=== PATIENT | male | born 1980 | race Two or more races ===

== ENCOUNTER 2024-05-06 15:58 | Emergency (ER) | payer MEDICAID, OTHER ==
[~2024-05-06] VITALS: Ht 172.7 cm; Wt 102.7 kg
[2024-05-06] MEDS ORDERED: AMOX875T4 PO (17:17)
[2024-05-06 17:19] VITALS: BP 148/80; PULSE 100; RESP 12; TEMP 97.7; O2SAT 95
== END 2024-05-06 17:18 | disposition home or self-care (01) ==
LOC: ER 16:03
DX: A49.01 Methicillin susceptible Staphylococcus aureus infection, unspecified site (principal)

== ENCOUNTER 2024-08-22 15:24 | Emergency (ER) | payer MEDICAID ==
[~2024-08-22] VITALS: Ht 185.4 cm; Wt 148.0 kg
[~2024-08-22 15:24] MED LIST: AMOX875T4 PO
[2024-08-22] MEDS: NALOXONE HCL 1MG/ML 2ML SYRINGE IV ONE (15:45)
--- NOTE | 2024-08-22 15:47 | ED.PDOC ---
Altered Mental Status HPI Comments HPI: Poor Historian. History obtained from EMS only. 43-year-old male brought in by EMS where he was found by bystanders behind a building. Patient was brought in for ALOC s/p ETOH use. Per EMS, bystanders at a local business called 911 due to seeing patient altered behind a movie theater and lying down on the ground. Patient has slurred speech, is A/O to self only, and briefly responds to verbal stimuli. Per EMS, there was no trauma or fall as bystanders saw patient gently lie down on the ground. Blood sugar was 190. Patient has strong scent of alcohol. PMHx: Unable to obtain due to ALOC PSHx: Unable to obtain due to ALOC Allergies: Unknown Initial EMS Vital Signs BP: 128/70 HR: 104 SpO2: 97% RR: 19 REVIEW OF SYSTEMS: Limited given the patient's ALOC CONSTITUTIONAL: Denies acute: fever, diaphoresis, chills, generalized weakness. HEAD: Denies acute: headache, photophobia Eyes: Denies acute: Double vision, vision loss, eye pain, eye discharge. EARS: Denies acute: tinnitus, hearing loss, ear discharge, ear pain, THROAT: Denies acute: sore throat, swelling, difficulty swallowing , pain with swallowing, change in voice. NECK: Denies acute: neck pain, neck swelling, stiff neck. HEART: Denies acute : chest pain, palpitations, LUNGS: Denies acute: SOB, wheezing, cough, hemoptysis ABDOMEN: Denies acute: abdominal pain, Nausea, Vomiting, diarrhea, melena , hematemesis, hematochezia SKIN: Denies acute: rash, redness, lesions, itchiness. EXTREMITIES: Denies acute: calf pain, numbness, tingling, weakness, denies pain in extremity. Denies acute: Low back pain. Neuro: Denies acute: focal neurological deficit, motor or sensory focal neurological deficit, tremors, seizure like activity, loss of bowel or bladder function, cauda equina like symptoms. : Denies acute: dysuria, hematuria, flank pain, increase in urinary frequency. PSYCH: Denies acute: hallucination, suicidal ideation, homicidal ideation. PHYSICAL EXAM: General: no acute distress, arousable to verbal stimuli. Makes eye contact. Head: normocephalic, atraumatic. Neck: supple, trachea is midline, no swelling. Throat: Normal phonation. Eyes:, no erythema, no purulent discharge, no proptosis, no icterus. Heart: regular rate, regular rhythm, no significant murmur appreciated. Lungs: no apparent respiratory distress, No wheezing, no rhonchi, no crackles. No stridors Clear to auscultation bilaterally. Abdomen: non tender to palpation, non distended, soft, no guarding, no rebound, + bowel sounds. Neuro: Awake, Alert, oriented to name, self, situation, follows commands GCS=15. Speech is normal. Skin: no petechia, no purpura, no cyanosis, non-pale, not jaundice. Lower extremities: --no - Pitting edema no deformity, no focal swelling, no calf TTP. Patient has a right ankle monitor. Makes eye contact. moves all four extremities. Face: no apparent facial droop. No nuchal rigidity, Kernig's sign, Brudzinski's sign, no meningeal signs. Chief Complaint: ETOH Time Seen by MD: 15:37 Primary Care Provider: unknown Reviewed Notes: Medications, Allergies Allergies: Coded Allergies: NO KNOWN ALLERGIES (Unverified , 05/06/24) Home Meds Active Scripts Amoxicillin & Pot Clavulanate (Amoxicillin/Potassium Cla) 875 Mg Tab, 1 TAB PO BID for 7 Days, #14 TAB Prov:VAMSI DAILY 05/06/24 Information Source: Emergency Med Personnel Mode of Arrival: EMS Past Medical History PAST MEDICAL HISTORY: Denies Surgical History: Denies all surgeries Social History Smoker: Non-Smoker Alcohol: Denies ETOH Use Drugs: Denies Drug Use Lives In: Home Was a procedure done? Was a procedure done?: No Differential Diagnosis (ALOC) Differential Diagnosis: Dehydration, DKA, Encephalopathy, Sepsis, Hypoxemia, Seizure, Closed Head Injury, CVA, Mass Lesion, SAH, Drug Overdose, ETOH Intoxication, Heart Failure, Renal Failure, Other (DDX include CVA, TGA, cerebellar ischemia/infarct, carotid stenosis, Intracranial mass/infection/bleed, encephalopathy, electrolyte abnormality, thyroid disease, hydrocephalus, hypoglycemia, drug toxicity, cardiac arrhythmia, seizure, infection in the elderly, Hyperammonemia., kidney failure., sepsis.) X-Ray, Labs, Meds, VS Vital Signs Date Time Temp Pulse Resp B/P (MAP) Pulse Ox O2 Delivery O2 Flow Rate FiO2 08/22/24 19:39 99.0 85 21 126/86 (99) 93 99.0 08/22/24 19:39 85 21 94 Room Air* 0 21 08/22/24 18:13 96 14 89 Room Air* 0 08/22/24 16:43 97 18 110/66 (81) 97 08/22/24 16:00 112 08/22/24 15:30 98.4 104 18 128/78 (95) 97 98.4 08/22/24 15:30 98.4 104 18 128/78 (95) 97 Lab Test 08/22/24 21:15 08/22/24 20:48 08/22/24 19:46 08/22/24 18:29 Range/Units Troponin I High Sensitivity < 3 L < 3 L < 3 L </=54 ng/L Plasma/Serum Blood Alcohol 284.1 H 363.2 H <10 mg/dL Lactic Acid Level 2.4 *H 2.7 *H 0.4-2.0 mmol/L White Blood Count 6.8 4.4-10.8 10^3/uL Red Blood Count 5.76 4.5-5.90 10^6/uL Hemoglobin 17.3 13.5-17.5 g/dL Hematocrit 50.5 41.0-53.0 % Mean Corpuscular Volume 87.7 80.0-100.0 fL Mean Corpuscular Hemoglobin 30.0 28.0-32.0 pg Mean Corpuscular Hemoglobin Concent 34.2 32.0-36.0 g/dL Red Cell Distribution Width 13.8 11.8-14.3 % Platelet Count 228 140-450 10^3/uL Mean Platelet Volume 8.7 6.9-10.8 fL Neutrophils (%) (Auto) 61.4 37.0-80.0 % Lymphocytes (%) (Auto) 31.1 10.0-50.0 % Monocytes (%) (Auto) 6.9 0.0-12.0 % Eosinophils (%) (Auto) 0.4 0.0-7.0 % Basophils (%) (Auto) 0.2 0.0-2.0 % Neutrophils # (Auto) 4.2 1.6-8.6 10 ^3/uL Lymphocytes # (Auto) 2.1 0.4-5.4 10 ^3/uL Monocytes # (Auto) 0.5 0-1.3 10 ^3/uL Eosinophils # (Auto) 0 0-0.8 10 ^3/uL Basophils # (Auto) 0 0-0.2 10 ^3/uL Nucleated Red Blood Cells 0.1 % Sodium Level 140 136-145 mmol/L Potassium Level 3.8 3.5-5.1 mmol/L Chloride Level 106 98-107 mmol/L Carbon Dioxide Level 25 20-31 mmol/L Anion Gap 9 5-15 Blood Urea Nitrogen 11 9-23 mg/dL Creatinine 0.83 0.700-1.30 mg/dL Glomerular Filtration Rate Calc 110 >90 mL/min BUN/Creatinine Ratio 13.3 10.0-20.0 Serum Glucose 95 74-106 mg/dL Calcium Level 9.6 8.7-10.4 mg/dL Magnesium Level 2.4 1.6-2.6 mg/dL Total Bilirubin 0.5 0.2-1.0 mg/dL Aspartate Amino Transferase (AST) 34 13-40 U/L Alanine Aminotransferase (ALT) 80 H 7-40 U/L Alkaline Phosphatase 79 46-116 U/L Total Protein 7.2 5.7-8.2 g/dL Albumin 4.4 3.2-4.8 g/dL Test 08/22/24 18:07 Range/Units Urine Color Colorless Yellow Urine Clarity Clear Clear Urine pH 6.0 5.0-9.0 Urine Specific [place] 1.006 1.001-1.035 Urine Protein 1+ H Negative Urine Ketones Negative Negative Urine Blood 1+ H Negative /uL Urine Nitrite Negative Negative Urine Bilirubin Negative Negative Urine Urobilinogen Normal Negative mg/dL Urine Leukocyte Esterase Negative Negative /uL Urine RBC <1 0 - 3 /hpf Urine WBC 1 0 - 3 /hpf Urine Squamous Epithelial Cells Few <5 /hpf Urine Bacteria None seen None Seen /hpf Urine Glucose Normal Normal mg/dL Urine Opiates Screen Neg NEGATIVE Urine Fentanyl Screen Neg NEGATIVE Urine Barbiturates Screen Neg NEGATIVE Urine Phencyclidine Screen Neg NEGATIVE Urine Amphetamines Screen Neg NEGATIVE Urine Benzodiazepines Screen Neg NEGATIVE Urine Cocaine Screen Neg NEGATIVE Urine Cannabinoids Screen Neg NEGATIVE Current Medications Medications (Trade) Dose Ordered Sig/Ally Route Start Time Stop Time Status Last Admin Sodium Chloride 1,000 ml @ 1,000 mls/hr Q1H ONCE IV 08/22/24 15:45 08/22/24 16:44 DC 08/22/24 19:10 Naloxone HCl (Narcan) 2 mg ONCE ONCE IM 08/22/24 16:15 08/22/24 16:35 DC 08/22/24 16:15 Sodium Chloride 1,000 ml @ 1,000 mls/hr Q1H ONCE IV 08/22/24 19:30 08/22/24 20:29 DC 08/22/24 20:00 Sodium Chloride 1,000 ml @ 1,000 mls/hr Q1H ONCE IV 08/22/24 21:30 08/22/24 22:29 DC 08/22/24 21:44 [place] [id number] Ph: [phone] DIAGNOSTIC IMAGING Diagnostic Imaging Report : [id number] Signed PATIENT: JAZMINE GOMEZ ACCT: [id number] UNIT: [id number] : 1980 LOC: ER ROOM / BED: / AGE / SEX: 43 / M ADM STATUS: REG ER SERVICE [id number] ORDERING PHYSICIAN: JEFERSON SCHROEDER DO PROCEDURE(s): CXRP - CHEST PORTABLE REASON: aloc ORDER NUMBER(s): [id number], ACCESSION NUMBER(s): [id number] CHEST RADIOGRAPH Indication:aloc Technique: Single frontal view of the chest was obtained Comparison: None FINDINGS: Lines and Tubes: None Lungs: No focal consolidation. Pleura: No effusion. No pneumothorax. Cardiomediastinal contours: Unremarkable Bones: No acute osseous abnormality. IMPRESSION: No acute cardiopulmonary disease. ATED BY: ELISABETH SHERMAN DO DICTATED DATE/TIME: 08/22/241713 SIGNED BY: ELISABETH SHERMAN DO SIGNED DATE/TIME: 08/22/241713 Time of 1ST Reevaluation: 16:07 Reevaluation 1ST: Unchanged Time of 2ND Reevaluation: 22:32 Reevaluation 2ND: Improved Patient Education/Counseling: Diagnosis, Treatment Family Education/Counseling: No Family Present Comments Patient presented with the above HPI.--altered level of consciousness----workup was initiated. patient was found with the above mentioned diagnosis. Patient was given: Multiple fluid boluses, Patient ED course and VS have been stabilized. Patient has been reassessed in the ED and remained in a stable condition. All the reports of any imaging studies that were ordered by myself were reviewed by myself. Patient level of consciousness is improving as his alcohol level is decreasing. Patient is moving all four extremities. Patient is conversational at this time. Patient was given food to eat which she tolerated well. Patient was unable to hold still earlier for a CT scan imaging. We will attempt again. The care of this patient was signed out to my colleague Dr. Fraire. Patient is awaiting CT scan head and cervical and abdomen and pelvis and reassessment and final disposition. Departure 1 Departure Time of Disposition: 22:20 Impression: Primary Impression: Alcohol abuse Additional Impression: Intoxication Disposition: 30 STILL A PATIENT Condition: Stable Discharged With: Self Critical Care Note Critical Care Time?: No I personally scribed for JEFERSON SCHROEDER DO ([email or web address]) on 08/22/24 at 15:47. Electronically submitted by Raymond Guzman ([email or web address]). I personally scribed for JEFERSON SCHROEDER DO ([email or web address]) on 08/22/24 at 20:29. Electronically submitted by Raymond Guzman ([email or web address]). JEFERSON SCHROEDER DO Aug 22, 2024 15:47
[2024-08-22] MEDS: NALOXONE HCL 0.4 MG/ML VIAL IM ONE (16:15)
--- NOTE | 2024-08-22 17:16 | DVH ---
CHEST RADIOGRAPH Indication:aloc Technique: Single frontal view of the chest was obtained Comparison: None FINDINGS: Lines and Tubes: None Lungs: No focal consolidation. Pleura: No effusion. No pneumothorax. Cardiomediastinal contours: Unremarkable Bones: No acute osseous abnormality. IMPRESSION: No acute cardiopulmonary disease.
[2024-08-22 18:09] LABS: Urine Bacteria None Seen /hpf (None Seen)
[2024-08-22 18:13] VITALS: PULSE 96; RESP 14; O2SAT 89
[2024-08-22 18:23] LABS: Urine Blood 1+ /uL (Negative); Urine Clarity Clear (Clear); Urine Color Colorless (Yellow); Urine Protein, UAD 1+ (Negative); Urine Specific Gravity 1.006 (1.001-1.035); Urine Urobilinogen Normal (Negative); Urine WBC 1 /hpf (0 - 3)
[2024-08-22 18:37] LABS: Amphetamine Screen, Urine Neg (NEGATIVE); Barbiturate Scree,Urine Neg (NEGATIVE); Benzodiazephine Screen, Urine Neg (NEGATIVE)
[2024-08-22 18:38] LABS: Cannabinoid Screen, Urine Neg (NEGATIVE); Cocaine Screen, Urine Neg (NEGATIVE); Opiate Scree,Urine Neg (NEGATIVE); Phencyclidine Screen, Urine Neg (NEGATIVE)
[2024-08-22 18:55] LABS: Basophils # (auto) 0 10 ^3/uL (0-0.2); Basophils % (auto) 0.2 % (0.0-2.0); Eosinophils # (auto) 0 10 ^3/uL (0-0.8); Eosinophils % (auto) 0.4 % (0.0-7.0); Hematocrit 50.5 % (41.0-53.0); Hemoglobin 17.3 g/dL (13.5-17.5); Lymphocytes # (auto) 2.1 10 ^3/uL (0.4-5.4); Lymphocytes % (auto) 31.1 % (10.0-50.0); Mean Corpuscular Hgb Conc. 34.2 g/dL (32.0-36.0); Mean Corpuscular Volume 87.7 fL (80.0-100.0); Monocytes # (auto) 0.5 10 ^3/uL (0-1.3); Monocytes % (auto) 6.9 % (0.0-12.0); Neutrophils # (auto) 4.2 10 ^3/uL (1.6-8.6); Neutrophils % (auto) 61.4 % (37.0-80.0); Nucleated Red Blood Cells % 0.1 %; Platelet Count (auto) 228 10^3/uL (140-450); Red Blood Cells 5.76 10^6/uL (4.5-5.90); Red Cell Distribution Width 13.8 % (11.8-14.3); White Blood Cell 6.8 10^3/uL (4.4-10.8)
[2024-08-22] MEDS: SODIUM CHLORIDE 0.9% 1,000 ML IV ONE ×3 (19:10→21:44)
[2024-08-22 19:18] LABS: Alanine Aminotransferase 80 U/L (7-40); Albumin 4.4 g/dL (3.2-4.8); Alkaline Phosphatase 79 U/L (46-116); Anion Gap 9 (5-15); Aspartate Aminotransferase 34 U/L (13-40); BUN/Creatinine Ratio 13.3 (10.0-20.0); Blood Urea Nitrogen 11 mg/dL (9-23); Calcium 9.6 mg/dL (8.7-10.4); Carbon Dioxide 25 mmol/L (20-31); Chloride 106 mmol/L (98-107); Glucose 95 mg/dL (74-106); Magnesium 2.4 mg/dL (1.6-2.6); Potassium 3.8 mmol/L (3.5-5.1); Sodium 140 mmol/L (136-145)
[2024-08-22 19:19] LABS: Bilirubin, Total 0.5 mg/dL (0.2-1.0); Lactic Acid w/Reflex 2.7 mmol/L (0.4-2.0); Total Protein 7.2 g/dL (5.7-8.2)
[2024-08-22 19:27] LABS: Blood Alcohol 363.2 mg/dL (<10)
[2024-08-22 19:39] VITALS: PULSE 85; RESP 21; O2SAT 94
--- NOTE | 2024-08-22 22:36 | DVH ---
EXAM: CT HEAD WITHOUT CONTRAST INDICATION: aloc TECHNIQUE: CT of the head without intravenous contrast. Radiation Dose : 1. Head: CT Dose: CTDI volume is 68 mGy. Dose-length product is 1197 mGy*cm The dose indicators for CT are the volume Computed Tomography (CT) Dose Index (CTDIvol) and the Dose Length Product (DLP), and are measured in units of mGy and mGy-cm, respectively. These indicators are not patient dose, but values generated from the CT scanner acquisition factors. The report includes radiation exposure data for exposures received during this examination. COMPARISON: None FINDINGS: There is no evidence of acute intracranial hemorrhage, extra-axial collection, mass effect, midline s hift, herniation or hydrocephalus. The ventricles, sulci and cisterns are age appropriate. The barbour-white differentiation is intact. Patchy periventricular and subcortical white matter hypoattenuation is nonspecific but may be related to small vessel ischemic disease. The visualized paranasal sinuses and mastoid air cells are clear. The surrounding soft tissues and osseous structures are unremarkable. IMPRESSION: No acute intracranial abnormality. Radiation optimization: All CT scans at this facility use at least one of these dose optimization joelle hniques: automated exposure control mA and/or kV adjustment per patient size (includes targeted exam s where dose is matched to clinical indication) or iterative reconstruction.
--- NOTE | 2024-08-22 22:40 | DVH ---
EXAM: CT CERVICAL WITHOUT CONTRAST INDICATION: aloc EXAM DATE: 08/22/2024 09:52 PM COMPARISON: None TECHNIQUE: CT of the cervical spine without intravenous contrast. Radiation Dose Information: CT Dose: CTDI volume is 25 mGy. Dose-length product is 684 mGy*cm FINDINGS: The cervical alignment is intact. No acute cervical spine fracture is identified. The vertebral bod y heights are intact. No suspicious osseous lesions are identified. The craniocervical junction merline ears intact. No significant degenerative changes are identified. There is no prevertebral soft tiss ue swelling. IMPRESSION: No evidence of acute cervical spine fracture or malalignment. END IMPRESSION:
--- NOTE | 2024-08-22 22:44 | DVH ---
CT SCAN ABDOMEN AND PELVIS WITHOUT CONTRAST CLINICAL HISTORY: aloc TECHNIQUE: Helical axial images are obtained from the lung bases through the pelvis without oral cont rast. No intravenous contrast was administered. Coronal and sagittal reformatted images were generate d from thin section reconstructions. One or more of the following radiation dose reduction techniques were used for this examination: automated exposure control, adjustment of the mA and/or kV according to patient size, use of iterative reconstruction technique. COMPARISON: None FINDINGS: LOWER THORAX: Imaged lung bases are grossly clear. ABDOMEN AND PELVIS: Evaluation of visceral and vascular structures is limited due to lack of contrast administration. Str eak artifact also limits evaluation. As visualized, the unenhanced liver, spleen, pancreas and adrenals appear grossly unremarkable. No si zable, radiopaque cholelithiasis. No hydroureteronephrosis. No evidence of abdominal aortic aneurysm. No evidence of bowel obstruction. Normal caliber appendix. No free intraperitoneal air or fluid ident ified. No sizable bladder calculus. No destructive osseous lesions identified. Degenerative changes of the lower lumbar spine most appar ent at L5-S1. IMPRESSION: No bowel obstruction, free intraperitoneal air/fluid or sizable inflammatory collections identified o n this noncontrast examination.
[2024-08-22 23:08] LABS: Lactic Acid w/Reflex 2.3 mmol/L (0.4-2.0)
[2024-08-23] MEDS: SODIUM CHLORIDE 0.9% 1,000 ML IV ONE (01:24)
[2024-08-23 03:10] VITALS: BP 100/56; PULSE 94; RESP 15; TEMP 98.2; O2SAT 95
== END 2024-08-23 03:40 | disposition home or self-care (01) ==
LOC: EDBD 15:24 → EDUNIT# 15:24 → ER 15:24
DX: F10.129 Alcohol abuse with intoxication, unspecified (principal); Z79.899 Other long term (current) drug therapy; Y90.0 Blood alcohol level of less than 20 mg/100 ml
CPT/HCPCS: 36415; 70450; 71045; 72125; 74176; 80053; 80307; 80320; 81001; 83605; 83735; 84484; 85025; 96360; 96361; 96372; 99285; J7030

== ENCOUNTER 2024-10-29 16:40 | Emergency (ER) | payer MEDICAID ==
[~2024-10-29] VITALS: Ht 172.7 cm; Wt 109.7 kg
[2024-10-29 19:03] VITALS: BP 193/117; PULSE 99; RESP 23; TEMP 97.7; O2SAT 96
[2024-10-29 19:41] LABS: Urine Bacteria None Seen /hpf (None Seen)
[2024-10-29 20:17] LABS: Urine Blood 1+ /uL (Negative); Urine Clarity Clear (Clear); Urine Color Light-Yellow (Yellow); Urine Protein, UAD 2+ (Negative); Urine Specific Gravity 1.024 (1.001-1.035); Urine Squamous Epithelial Cell None Seen /hpf (<5); Urine Urobilinogen Normal (Negative); Urine WBC 1 /hpf (0 - 3)
[2024-10-29] MEDS ORDERED: CLOT1CRE56 TOP (20:23)
--- NOTE | 2024-10-29 20:24 | ED.PDOC ---
General HPI Comments 43-YEAR-OLD MALE PRESENTS TO ER WITH PENILE COMPLAINT X1 MONTH. PATIENT REPORTS THAT HE STARTED EXPERIENCING REDNESS/ITCHINESS TO PENIS ONE MONTH AGO. REPORTS THAT HE HAS BEEN USING TOPICAL TINACTIN WITH SOME RELIEF. DENIES ANY PAIN. DENIES ANY EXPOSURE TO STDS AND STATES HE HAS NOT BEEN SEXUALLY ACTIVE IN "TWO YEARS". DENIES FEVER, BODY ACHES, CHILLS, N/V, NIGHT SWEATS, BACK/FLANK PAIN, PENILE DISCHARGE/CHANGES IN URINATION OR ANY FURTHER SYMPTOMS/COMPLAINTS Chief Complaint: Penile Problem Time Seen by MD: 18:11 Primary Care Provider: unknown Reviewed notes: Nurses Notes, Medications, Allergies Allergies: Coded Allergies: NO KNOWN ALLERGIES (Unverified , 05/06/24) Home Meds Active Scripts Clotrimazole (Lotrimin) 1 Applic Ap, 1 APPLIC TOP [id number], #1 CRE 0 Refills Prov:MICHAEL ALEXANDER 10/29/24 Amoxicillin & Pot Clavulanate (Amoxicillin/Potassium Cla) 875 Mg Tab, 1 TAB PO BID for 7 Days, #14 TAB Prov:VAMSI DAILY 05/06/24 Information Source: Patient Mode of Arrival: Ambulatory Past Medical History PAST MEDICAL HISTORY: Denies Surgical History: Denies all surgeries Family History Family History: Unknown Social History Smoker: Non-Smoker Alcohol: Denies ETOH Use Drugs: Denies Drug Use Lives In: Home Constitutional: denies: chills, diaphoresis, fatigue, fever, malaise, sweats, weakness, others EENTM: denies: blurred vision, double vision, ear bleeding, ear discharge, ear drainage, ear pain, ear ringing, eye pain, eye redness, hearing loss, mouth pain, mouth swelling, nasal discharge, nose bleeding, nose congestion, nose pain, photophobia, tearing, throat pain, throat swelling, voice changes, others Respiratory: denies: cough, hemoptysis, orthopnea, SOB at rest, shortness of breath, SOB with excertion, stridor, wheezing, others Cardiovascular: denies: chest pain, dizzy spells, diaphoresis, Dyspnea on exertion, edema, irregular heart beat, left arm pain, lightheadedness, palpitations, PND, syncope, others Gastrointestinal: denies: abdomen distended, abdominal pain, blood streaked bowels, constipated, diarrhea, dysphagia, difficulty swallowing, hematemesis, melena, nausea, poor appetite, poor fluid intake, rectal bleeding, rectal pain, vomiting, others Genitourinary: reports: others ( STATED IN HPI) Neurological: denies: dizziness, fainting, headache, left sided numbness, left sided weakness, numbness, paresthesia, pre-existing deficit, right sided numbness, right sided weakness, seizure, speech problems, tingling, tremors, weakness, others Musculoskeletal: denies: back pain, gout, joint pain, joint swelling, muscle pain, muscle stiffness, neck pain, others Integumetry: reports: others ( STATED IN HPI) Allergic/Immunocompromised: denies: Difficulty Healing, Frequent Infections, Hives, Itching, others Hematologic/Lymphatic: denies: anemia, blood clots, easy bleeding, easy bruising, swollen glands, others Endocrine: denies: excessive hunger, excessive sweating, excessive thirst, excessive urination, flushing, intolerance to cold, intolerance to heat, unexplained weight gain, unexplained weight loss, others Psychiatric: denies: anxiety, bipolar disorder, depression, hopeless, panic disorder, schizophrenia, sleepless, suicidal, others Physical Exam General Appearance: No Apparent Distress, Obese HEENT: PERRL/EOMI Neck: Full Range of Motion, Non-Tender, Normal Respiratory: Chest Non-Tender, Lungs Clear, No Accessory Muscle Use, No Respiratory Distress, Normal Breath Sounds Cardiovascular: No Murmur, No Gallop, Regular Rate/Rhythm Breast Exam: Deferred Gastrointestinal: Non Tender, No Pulsatile Mass, Soft Genitalia: Other (PATIENT UNCIRCUMCISED, MILD ERYTHEMA SURROUNDING GLANS PENIS NOTED. NO PENILE DISCHARGE APPRECIATED. REMAINDER OF GENITALIA EXAM- UNREMARKABLE) Pelvic: Deferred Rectal: Deferred Extremities: Normal capillary refill, Normal range of motion Neurologic: Alert, No Motor Deficits, Normal Affect, Normal Mood, No Sensory Deficits Cerebellar Function: Normal Reflexes: Normal Skin: Dry, Warm Lymphatic: No Adenopathy Was a procedure done? Was a procedure done?: No Sedation Sedation?: No Differential Diagnosis Kidney stone (Female): N/A Penile/Scrotal: STD, UTI, Phimosis X-Ray, Labs, Meds, VS Vital Signs Date Time Temp Pulse Resp B/P (MAP) Pulse Ox O2 Delivery O2 Flow Rate FiO2 10/29/24 19:03 97.7 99 23 193/117 (142) 96 97.7 10/29/24 17:10 99.5 108 16 124/98 (107) 99 Lab Test 10/29/24 17:15 Range/Units Urine Color Light-yellow Yellow Urine Clarity Clear Clear Urine pH 6.0 5.0-9.0 Urine Specific [place] 1.024 1.001-1.035 Urine Protein 2+ H Negative Urine Ketones Trace Negative Urine Blood 1+ H Negative /uL Urine Nitrite Negative Negative Urine Bilirubin Negative Negative Urine Urobilinogen Normal Negative mg/dL Urine Leukocyte Esterase Negative Negative /uL Urine RBC 6 0 - 3 /hpf Urine WBC 1 0 - 3 /hpf Urine Squamous Epithelial Cells None seen <5 /hpf Urine Bacteria None seen None Seen /hpf Urine Glucose Normal Normal mg/dL URANALYSIS REVIEWED WITHOUT ANY SIGNIFICANT ABNORMALITIES ADVISED TO DISCONTINUE USE OF TINACTIN ADVISED TO FOLLOW UP WITH PCP IN 1-2 DAYS PATIENT VERBALIZED UNDERSTANDING AND AGREEABLE WITH CURRENT PLAN OF CARE ADVISED TO RETURN TO ER IMMEDIATELY IF SYMPTOMS WORSEN Time of 1ST Reevaluation: 19:54 Reevaluation 1ST: N/A Patient Education/Counseling: Diagnosis, Treatment, Prognosis, Need For Follow Up Family Education/Counseling: No Family Present Departure 1 Departure Time of Disposition: 20:12 Impression: Primary Impression: Balanoposthitis Disposition: 01 HOME / SELF CARE / HOMELESS Condition: Stable e-Prescriptions Clotrimazole (Lotrimin) 1 Applic Ap 1 APPLIC TOP [id number], #1 CRE 0 Refills Prov: MICHAEL ALEXANDER 10/29/24 Discharged With: Self Critical Care Note Critical Care Time?: No Stability Stability form required: No Heart Score Heart Score: Heart Score Response (Comments) Value History N/A 0 EKG N/A 0 Age N/A 0 Risk Factors N/A 0 Troponin N/A 0 Total 0 MICHAEL ALEXANDER Oct 29, 2024 20:24
== END 2024-10-29 20:44 | disposition home or self-care (01) ==
LOC: ER 16:46
DX: N47.6 Balanoposthitis (principal)
CPT/HCPCS: 81001